=== PATIENT | male | born 1930 | race Caucasian/White ===

== ENCOUNTER → 2016-11-04 | Outpatient (CLI) | payer MEDICARE ==
[2016-11-04 08:23] LABS: Blood Urea Nitrogen 15 mg/dL (9-20); Non-African American GFR(MDRD) >60 (>60 ml/min/1.73 sqM)
--- NOTE | 2016-11-04 09:27 | CT ---
EXAMINATION TYPE: CT abdomen pelvis w con DATE OF EXAM: 11/04/2016 9:11 AM COMPARISON: 12/14/2014 HISTORY: Prostate CA CT DLP: 1514 mGycm CONTRAST: CT scan of the abdomen and pelvis is performed with Oral Contrast and with IV Contrast, patient injec dian with 100 mL of Omnipaque 300. FINDINGS: LUNG BASES-: No visible nodule. No infiltrate. LIVER/GB: No calcified gallstones. Innumerable hepatic cysts are again noted. Biliary tree is of no rmal caliber. PANCREAS: No inflammation. No distinct mass. SPLEEN: No splenic enlargement. No lesion seen. ADRENALS: No nodule. No thickening. KIDNEYS/BLADDER: No hydronephrosis. No nephrolithiasis. Stable exophytic right renal cyst. No goyo d renal lesions detected. Urinary bladder grossly unremarkable. BOWEL: Normal appendix. Normal bowel caliber. No inflammation. GENITAL ORGANS: No gross abnormality. LYMPH NODES: No greater than 1cm abdominal or pelvic lymph nodes are appreciated. AORTA: Mild progression distal abdominal aortic aneurysm measuring 4.7 x 3.7 cm with associated mural thrombus. Previous measurement was 4.1 x 3.3 cm. OSSEOUS STRUCTURES: Degenerative changes lumbar spine. No definite evidence for blastic metastatic di sease. Cystic degenerative changes noted left iliac wing adjacent to the SI joint is unchanged. OTHER: No significant additional abnormality is seen. IMPRESSION: 1. No CT evidence to suggest metastatic disease at this time. 2. Degenerative changes lumbar spine. Cystic degenerative change adjacent to the left SI joint. 3. Mildly progressive abdominal aortic aneurysm. 4 multiple hepatic cysts.
--- NOTE | 2016-11-04 13:43 | NM ---
EXAMINATION TYPE: NM bone scan whole body DATE OF EXAM: 11/04/2016 12:11 PM COMPARISON: CT abdomen pelvis 04 Nov 2016, whole-body bone scan 14 December 2014 History: Prostate carcinoma Delayed whole-body scanning was performed following the injection of 27.4 mCi Tc 99m MDP. Images acq uired 3.5 hours post injection. FINDINGS: There is a no focus of abnormal activity involving the posterior ischium on the left and also a focus of the costovertebral angle on the left at T7. No other significant interval change is evident. Soft tissue uptake is normal. There is a scoliotic curvature to the lumbar spine. Uptake within the s houlders, sternoclavicular joints, the, wrists and spine is likely degenerative. Postop changes are n oted to the knees. IMPRESSION: Focus of abnormal uptake in the posterior fascia on the left shows a vague area of corresponding abno rmal density on CT and is a new finding compared to prior bone scan. Findings are suggestive of metas tatic focus, MRI of the pelvis could be confirmatory. Additional findings above thought likely to be degenerative.
== END | disposition home or self-care (01) ==
LOC: RADCTMAIN 07:23
PROVIDERS: ATTEND Urology
DX: C61 Malignant neoplasm of prostate (principal); R94.8 Abnormal results of function studies of other organs and systems; M47.816 Spondylosis without myelopathy or radiculopathy, lumbar region; I71.4 Abdominal aortic aneurysm, without rupture; K76.89 Other specified diseases of liver; M53.88 Other specified dorsopathies, sacral and sacrococcygeal region
CPT/HCPCS: 82565; 84520; 74177; 36415; 78306; A9503; Q9967

== ENCOUNTER → 2018-04-07 | Outpatient (CLI) | payer MEDICARE ==
--- NOTE | 2018-04-07 14:23 | NM ---
EXAMINATION TYPE: NM bone scan whole body DATE OF EXAM: 04/07/2018 COMPARISON: 11/04/2016 HISTORY: Prostate cancer Delayed whole-body scanning was performed following the injection of 24.1 mCi Tc 99m MDP. Images acq uired 3 hours post injection. FINDINGS: Previously noted focus of abnormal activity involving the posterior ischium on the left and also a fo cus of the costovertebral angle on the left at T7 are not seen on today's exam. There is a abnormal f ocus seen on the right the approximate level of T9. This is new from the prior exam. Faint uptake involving the thoracic and mid and lower lumbar spine is stable likely degenerative. Abnormal uptake involving the shoulders and sternoclavicular joints likely post arthritic.. Photopenic defects involving the knees compatible with previous surgery. Abnormal uptake involving the wrists and feet likely in the basis of previous trauma or more likely p ost arthritic. Soft tissue uptake is normal. There is a scoliotic curvature to the lumbar spine. Uptake within the s houlders, sternoclavicular joints, the, wrists and spine is likely degenerative. Postop changes are n oted to the knees. IMPRESSION: 1. Resolution of abnormal uptake involving the left ischium and T7. There is a new focal area of upta ke involving T9 on the right which is nonspecific and could be correlated with x-ray.
== END | disposition home or self-care (01) ==
LOC: RADNMMAIN 09:59
PROVIDERS: ATTEND Internal Medicine Hematology & Oncology
DX: C61 Malignant neoplasm of prostate (principal); R93.7 Abnormal findings on diagnostic imaging of other parts of musculoskeletal system
CPT/HCPCS: 78306; A9503

== ENCOUNTER → 2019-03-01 | Outpatient (CLI) | payer MEDICARE ==
--- NOTE | 2019-03-02 04:53 | CT ---
EXAMINATION TYPE: CT mastoid wo con DATE OF EXAM: 03/01/2019 COMPARISON: None HISTORY: 88-year-old male Otalgia, left ear, impacted cerumen. CT DLP: 218 mGycm Automated exposure control for dose reduction was used. TECHNIQUE: Contiguous high-resolution axial scanning of the temporal bones performed without IV cont rast. Coronal reformatted images obtained. FINDINGS: There is no abnormality of visualized intracranial structures by noncontrast thin section CT techniqu e. Atherosclerotic calcifications within the bilateral carotid siphons and V4 segment right vertebral artery. Bilateral cerumen is noted within the right greater than left external auditory canals The middle ear cavities and mastoid air cells are well pneumatized. There is no abnormality of middle ear ossicles. The round and oval windows are normal. There is no abnormality of bony labyrinths. No dehiscence of the superior semicircular canals. The vestibular aqueduct are well visualized. The facial nerve canal is normal bilaterally. The internal auditory canal and meati are symmetrical bilaterally. There is no evidence of fractures. Degenerative changes of the C1 dens articulation. Moderate mucosal thickening throughout the ethmoid air cells and right greater than left maxillary si nuses. Mild within the sphenoid sinuses. Reformatted images confirm above findings. IMPRESSION: 1. Mild cerumen within the right greater than left external auditory canals. 2. Middle ear cavities and mastoid air cells are well pneumatized. No additional specific abnormality seen of the temporal bones. 3. 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
== END | disposition home or self-care (01) ==
LOC: RADCTMAIN 14:42
PROVIDERS: ATTEND Family Medicine
DX: J32.2 Chronic ethmoidal sinusitis (principal); J32.0 Chronic maxillary sinusitis; H61.22 Impacted cerumen, left ear; H70.092 Acute mastoiditis with other complications, left ear
CPT/HCPCS: 70486

== ENCOUNTER → 2019-04-29 | Outpatient (CLI) | payer MEDICARE ==
--- NOTE | 2019-04-29 14:31 | NM ---
EXAMINATION TYPE: NM bone scan whole body DATE OF EXAM: 04/29/2019 COMPARISON: 04/07/2018 bone scan, bone scan 11/14/2016, CT scan 11/04/2016 abdomen pelvis HISTORY: Prostate cancer Delayed whole-body scanning was performed following the injection of 24.6 mCi Tc 99m MDP. Images acq uired 3 hours post injection. FINDINGS: Abnormal uptake in the vertebral column including the previously noted T9 level on the right is stabl e. Stable uptake involving the lumbar and lumbosacral junction.. Faint uptake involving the thoracic and mid and lower lumbar spine is stable likely degenerative. Abnormal uptake involving the shoulders and sternoclavicular joints likely post arthritic. Photopenic defects involving the knees compatible with previous surgery. Abnormal uptake involving the wrists and feet likely on the basis of previous trauma or more likely p ost arthritic. Soft tissue uptake is normal. There is a scoliotic curvature to the lumbar spine. Uptake within the s houlders, sternoclavicular joints, the, wrists and faint asymmetric uptake involving the left issue i s stable. Postop changes are noted to the knees. IMPRESSION: Areas of abnormal uptake are stable and unchanged from multiple prior exams. No new areas of abnormal uptake are noted 1. Stable faint intensity area of uptake involving left ischium posteriorly is stable relative to th e CT scan and bone scan of 2017. As previously noted area of metastasis is not excluded in this regio n. No interval change is noted. 2. Areas of abnormal uptake involving the vertebral column appear to be related to multilevel severe degenerative disc disease as noted on the CT scan of 2017 of the abdomen pelvis. At that time there w ere no destructive lesions or sclerotic lesions. Therefore, given their stability in intensity of upt randal and CT appearance over time the findings are felt to be benign and on the basis of degenerative d isc disease. 3. No recent CT scan is available for comparison. There is an abnormal area of lucency with sclerotic margin involving the left iliac wing on the CT scan 2017 which demonstrates no definitive reduced or increased uptake by bone scan on the current exam. This finding is also stable.
== END | disposition home or self-care (01) ==
LOC: RADNMMAIN 10:11
PROVIDERS: ATTEND Internal Medicine Hematology & Oncology
DX: C61 Malignant neoplasm of prostate (principal)
CPT/HCPCS: 78306; A9503

== ENCOUNTER → 2019-12-08 | Outpatient (CLI) | payer MEDICARE ==
--- NOTE | 2019-12-08 12:34 | FL ---
EXAMINATION TYPE: FL barium swallow DATE OF EXAM: 12/08/2019 COMPARISON: None HISTORY: Dysphasia, abnormal EGD, heartburn TECHNIQUE: Double air contrast technique FINDINGS: Esophagus dilates normal caliber has normal contour gastroesophageal junction. Gastroesopha geal junction opens to normal caliber. Secondary and tertiary contractions were evident during the ex amination. There is incomplete stripping the esophageal bolus the horizontal drinking position. No najera spicious intraluminal or extramural defects are evident. Fluoroscopy time 43 seconds. Images: 13 IMPRESSION: 1. Presbyesophagus with secondary and tertiary contractions. 2. No suspicious mucosal irregularity or intraluminal defects evident.
== END | disposition home or self-care (01) ==
LOC: RADUSWWP 11:01
PROVIDERS: ATTEND Otolaryngology
DX: K22.8 Other specified diseases of esophagus (principal)
CPT/HCPCS: 74220

== ENCOUNTER 2020-12-04 18:27 | Emergency (ER) | payer MEDICARE ==
[2020-12-04 18:46] VITALS: RESP 16
[2020-12-04] MEDS ORDERED: SODIUM CHLORIDE 0.9% 500 ML 500 ML IV STA (18:52)
--- NOTE | 2020-12-04 19:22 | ED ---
Weakness HPI - General Chief complaint: Weakness Stated complaint: fatigue, low BP Time Seen by Provider: 12/04/20 18:52 Source: patient Mode of arrival: wheelchair Limitations: no limitations - History of Present Illness Initial comments: Patient complains of generalized weakness. He has no chest or belly or back pain. He has no nausea or vomiting. He has no fevers or chills. Nothing makes his symptoms better or worse. He has taken no medicine for this. He is unaware of sick contacts. He hasn't traveled anywhere. He has had no syncope. - Related Data Home Medications Medication Instructions Recorded Confirmed Donepezil HCl [Aricept] 10 mg PO HS 01/17/16 12/04/20 Abiraterone Acetate 1,000 mg PO DAILY 12/04/20 12/04/20 Calcium Carbonate [Calcium] 600 mg PO DAILY 12/04/20 12/04/20 Losartan Potassium [Cozaar] 25 mg PO DAILY 12/04/20 12/04/20 Mirabegron [Myrbetriq] 50 mg PO DAILY 12/04/20 12/04/20 Multivitamins, Thera [Multivitamin 1 tab PO DAILY 12/04/20 12/04/20 (formulary)] predniSONE 5 mg PO DAILY 12/04/20 12/04/20 Allergies Allergy/AdvReac Type Severity Reaction Status Date / Time No Known Allergies Allergy Verified 12/04/20 19:34 Review of Systems ROS Statement: Those systems with pertinent positive or pertinent negative responses have been documented in the HPI. ROS Other: All systems not noted in ROS Statement are negative. Past Medical History Past Medical History: Cancer, Dementia, Hypertension, Prostate Disorder Additional Past Medical History / Comment(s): prostate cancer, aortic aneurysm History of Any Multi-Drug Resistant Organisms: None Reported Past Surgical History: Hernia Repair, Orthopedic Surgery, Pacemaker Additional Past Surgical History / Comment(s): knee replacements Past Psychological History: No Psychological Hx Reported Smoking Status: Former smoker Past Alcohol Use History: Daily Past Drug Use History: None Reported General Exam Limitations: no limitations General appearance: alert, in no apparent distress Head exam: Present: atraumatic, normocephalic, normal inspection Eye exam: Present: normal appearance, PERRL, EOMI. Absent: scleral icterus, conjunctival injection, periorbital swelling ENT exam: Present: normal exam, mucous membranes moist Neck exam: Present: normal inspection. Absent: tenderness, meningismus, lymph adenopathy Respiratory exam: Present: normal lung sounds bilaterally. Absent: respiratory distress, wheezes, rales, rhonchi, stridor Cardiovascular Exam: Present: regular rate, normal rhythm, normal heart sounds. Absent: systolic murmur, diastolic murmur, rubs, gallop, clicks GI/Abdominal exam: Present: soft, normal bowel sounds. Absent: distended, tenderness, guarding, rebound, rigid Extremities exam: Present: normal inspection, full ROM, normal capillary refill. Absent: tenderness, pedal edema, joint swelling, calf tenderness Back exam: Present: normal inspection Neurological exam: Present: alert, oriented X3, CN II-XII intact Psychiatric exam: Present: normal affect, normal mood Skin exam: Present: warm, dry, intact, normal color. Absent: rash Course Vital Signs 12/04/20 12/04/20 18:40 19:21 Temperature 98.3 F Pulse Rate 70 67 Respiratory 16 16 Rate Blood Pressure 123/74 133/77 O2 Sat by Pulse 95 95 Oximetry EKG Findings - EKG Comments: EKG Findings:: Twelve-lead EKG shows ventricular rate 68 beats per minute, long AK interval, no ST elevation or depression, interpreted by me as sinus rhythm with first-degree AV block. Medical Decision Making - Medical Decision Making Patient presented with weakness. His workup does not reveal any acute emergency requiring admission to the hospital. He is given IV fluids. He has improved significantly. I offered the patient admission to the hospital if he wasn't feeling well enough to go home. Patient states that he would like to go home. Therefore I advised him to return to the emergency department immediately if his symptoms worsen or if he develops any other problems or complaints. Otherwise he should follow-up with his physician within 2 days for reevaluation. - Lab Data Result diagrams: 12/04/20 19:13 12/04/20 19:13 Lab Results 12/04/20 12/04/20 12/04/20 Range/Units 19:13 19:13 19: WBC 13.3 H (3.8-10.6) k/uL RBC 4.12 L (4.30-5.90) m/uL Hgb 13.9 (13.0-17.5) gm/dL Hct 41.5 (39.0-53.0) % MCV 100.6 H (80.0-100.0) fL MCH 33.7 (25.0-35.0) pg MCHC 33.5 (31.0-37.0) g/dL RDW 14.0 (11.5-15.5) % Plt Count 142 L (150-450) k/uL MPV 7.3 Neutrophils % 87 % Lymphocytes % 7 % Monocytes % 5 % Eosinophils % 1 % Basophils % 0 % Neutrophils # 11.5 H (1.3-7.7) k/uL Lymphocytes # 0.9 L (1.0-4.8) k/uL Monocytes # 0.7 (0-1.0) k/uL Eosinophils # 0.1 (0-0.7) k/uL Basophils # 0.0 (0-0.2) k/uL Macrocytosis Slight Sodium 139 (137-145) mmol/L Potassium 4.1 (3.5-5.1) mmol/L Chloride 106 (98-107) mmol/L Carbon Dioxide 27 (22-30) mmol/L Anion Gap 6 mmol/L BUN 18 (9-20) mg/dL Creatinine 0.79 (0.66-1.25) mg/dL Est GFR (CKD-EPI)AfAm >90 (>60 ml/min/1.73 sqM) Est GFR (CKD-EPI)NonAf 80 (>60 ml/min/1.73 sqM) Glucose 110 H (74-99) mg/dL Plasma Lactic Acid David (0.7-2.0) mmol/L Calcium 9.0 (8.4-10.2) mg/dL Magnesium 2.0 (1.6-2.3) mg/dL Total Bilirubin 1.5 H (0.2-1.3) mg/dL AST 100 H (17-59) U/L ALT 146 H (4-49) U/L Alkaline Phosphatase 70 (38-126) U/L Troponin I (0.000-0.034) ng/mL NT-Pro-B Natriuret Pep pg/mL Total Protein 6.0 L (6.3-8.2) g/dL Albumin 3.6 (3.5-5.0) g/dL TSH 1.330 (0.465-4.680) mIU/L Urine Color Yellow Urine Appearance Cloudy (Clear) Urine pH 6.5 (5.0-8.0) Ur Specific [place] 1.026 (1.001-1.035) Urine Protein 1+ H (Negative) Urine Glucose (UA) Negative (Negative) Urine Ketones Trace H (Negative) Urine Blood Negative (Negative) Urine Nitrite Negative (Negative) Urine Bilirubin Negative (Negative) Urine Urobilinogen 8.0 (<2.0) mg/dL Ur Leukocyte Esterase Negative (Negative) Urine RBC 3 (0-5) /hpf Urine WBC 2 (0-5) /hpf Ur Squamous Epith Cells <1 (0-4) /hpf Urine Bacteria Rare H (None) /hpf Hyaline Casts 1 (0-2) /lpf Urine Mucus Occasional H (None) /hpf 12/04/20 12/04/20 12/04/20 Range/Units 19:13 19:13 19:13 WBC (3.8-10.6) k/uL RBC (4.30-5.90) m/uL Hgb (13.0-17.5) gm/dL Hct (39.0-53.0) % MCV (80.0-100.0) fL MCH (25.0-35.0) pg MCHC (31.0-37.0) g/dL RDW (11.5-15.5) % Plt Count (150-450) k/uL MPV Neutrophils % % Lymphocytes % % Monocytes % % Eosinophils % % Basophils % % Neutrophils # (1.3-7.7) k/uL Lymphocytes # (1.0-4.8) k/uL Monocytes # (0-1.0) k/uL Eosinophils # (0-0.7) k/uL Basophils # (0-0.2) k/uL Macrocytosis Sodium (137-145) mmol/L Potassium (3.5-5.1) mmol/L Chloride (98-107) mmol/L Carbon Dioxide (22-30) mmol/L Anion Gap mmol/L BUN (9-20) mg/dL Creatinine (0.66-1.25) mg/dL Est GFR (CKD-EPI)AfAm (>60 ml/min/1.73 sqM) Est GFR (CKD-EPI)NonAf (>60 ml/min/1.73 sqM) Glucose (74-99) mg/dL Plasma Lactic Acid David 1.2 (0.7-2.0) mmol/L Calcium (8.4-10.2) mg/dL Magnesium (1.6-2.3) mg/dL Total Bilirubin (0.2-1.3) mg/dL AST (17-59) U/L ALT (4-49) U/L Alkaline Phosphatase (38-126) U/L Troponin I <0.012 (0.000-0.034) ng/mL NT-Pro-B Natriuret Pep 391 pg/mL Total Protein (6.3-8.2) g/dL Albumin (3.5-5.0) g/dL TSH (0.465-4.680) mIU/L Urine Color Urine Appearance (Clear) Urine pH (5.0-8.0) Ur Specific [place] (1.001-1.035) Urine Protein (Negative) Urine Glucose (UA) (Negative) Urine Ketones (Negative) Urine Blood (Negative) Urine Nitrite (Negative) Urine Bilirubin (Negative) Urine Urobilinogen (<2.0) mg/dL Ur Leukocyte Esterase (Negative) Urine RBC (0-5) /hpf Urine WBC (0-5) /hpf Ur Squamous Epith Cells (0-4) /hpf Urine Bacteria (None) /hpf Hyaline Casts (0-2) /lpf Urine Mucus (None) /hpf Disposition Clinical Impression: Weakness Disposition: HOME SELF-CARE Condition: Good Instructions (If sedation given, give patient instructions): Weakness (ED) Is patient prescribed a controlled substance at d/c from ED?: No Referrals: Amy Anton III, MD [Primary Care Provider] - 1-2 days
[2020-12-04 19:28] LABS: Basophils % (A) 0 %; Eosinophils # (A) 0.1 k/uL (0-0.7); Eosinophils % (A) 1 %; HCT 41.5 % (39.0-53.0); HGB 13.9 gm/dL (13.0-17.5); Lymphocytes # (A) 0.9 k/uL (1.0-4.8); Lymphocytes % (A) 7 %; MCH 33.7 pg (25.0-35.0); MCHC 33.5 g/dL (31.0-37.0); MCV 100.6 fL (80.0-100.0); Macrocytosis Slight; Mean Platelet Volume 7.3; Monocytes # (A) 0.7 k/uL (0-1.0); Monocytes % (A) 5 %; Neutrophils # (A) 11.5 k/uL (1.3-7.7); Neutrophils % (A) 87 %; Platelet Count 142 k/uL (150-450); RBC 4.12 m/uL (4.30-5.90); WBC 13.3 k/uL (3.8-10.6)
[2020-12-04 19:38] LABS: ALT 146 U/L (4-49); AST 100 U/L (17-59); African American GFR (CKD) >90 (>60 ml/min/1.73 sqM); Albumin 3.6 g/dL (3.5-5.0); Alkaline Phosphatase 70 U/L (38-126); Anion Gap 6 mmol/L; Blood Urea Nitrogen 18 mg/dL (9-20); Carbon Dioxide 27 mmol/L (22-30); Chloride 106 mmol/L (98-107); Glucose 110 mg/dL (74-99); Non-African American GFR(CKD) 80 (>60 ml/min/1.73 sqM); Potassium 4.1 mmol/L (3.5-5.1); Sodium 139 mmol/L (137-145); Total Bilirubin 1.5 mg/dL (0.2-1.3)
[2020-12-04] MEDS ORDERED: SODIUM CHLORIDE 0.9% 1,000 ML IV STA (19:39)
--- NOTE | 2020-12-04 19:57 | XR ---
EXAMINATION TYPE: XR chest 1V portable DATE OF EXAM: 12/04/2020 COMPARISON: 11/12/2018 HISTORY: Short of breath TECHNIQUE: Single view FINDINGS: There is no heart failure nor confluent pneumonic infiltrate. There is some interstitial in creased density left lung base. There is left axillary pacemaker. There are no hilar masses. There ar e emphysematous changes in the right upper lobe. IMPRESSION: Emphysema. Fibrotic changes and atelectasis at the left lung base appear increased compar ed to old exam. No heart failure.
[2020-12-04 20:21] LABS: Appearance,Urine Cloudy (Clear); Bacteria,Urine Rare /hpf; Bilirubin,Urine Negative (Negative); Blood,Urine Negative (Negative); Color,Urine Yellow; Glucose,Urine (UA) Negative (Negative); Hyaline Casts,Urine 1 /lpf (0-2); Ketones,Urine Trace (Negative); Leukocyte Esterase,Urine Negative (Negative); Mucus,Urine Occasional /hpf; Nitrite,Urine Negative (Negative); PH, Urine 6.5 (5.0-8.0); Protein,Urine 1+ (Negative); RBC,Urine 3 /hpf (0-5); Specific Gravity,Urine 1.026 (1.001-1.035); Squamous Epithelial Cell,Urine <1 /hpf (0-4); WBC,Urine 2 /hpf (0-5)
[2020-12-04 21:28] VITALS: BP 137/89; PULSE 87; TEMP 98
== END 2020-12-04 21:27 | disposition home or self-care (01) ==
LOC: EC 18:27
DX: R53.1 Weakness (principal); R53.83 Other fatigue; I10 Essential (primary) hypertension; F03.90 Unspecified dementia, unspecified severity, without behavioral disturbance, psychotic disturbance, mood disturbance, and anxiety; Z85.46 Personal history of malignant neoplasm of prostate; Z87.891 Personal history of nicotine dependence; Z79.52 Long term (current) use of systemic steroids; Z79.899 Other long term (current) drug therapy; Z95.0 Presence of cardiac pacemaker
CPT/HCPCS: 36415; 71045; 80053; 81001; 83605; 83735; 83880; 84443; 84484; 85025; 93005; 96360; 96361; 99285